=== PATIENT | female | born 1945 | race Caucasian/White ===

== ENCOUNTER → 2019-05-20 | Outpatient (CLI) | payer MEDICARE ==
--- NOTE | 2019-05-20 12:13 | Diagnostic Imaging Report ---
INDICATION: Right knee popping. Time of exam 11:59 AM 3 views of the right knee were obtained. Alignment is normal. There are degenerative changes about the right knee. The medial and lateral joint spaces are fairly well maintained but there is marginal osteophyte formation of the femoral condyles and tibial plateaus. Patellofemoral degenerative change is significant. No fractures are seen. There is no joint effusion. IMPRESSION: Degenerative changes. No acute bony abnormality is detected. Dictated by: Dictated on workstation # [id number]
== END ==
LOC: RAD FS 11:42
PROVIDERS: ATTEND Nurse Practitioner
DX: M17.11 Unilateral primary osteoarthritis, right knee (principal)
CPT/HCPCS: 73562

== ENCOUNTER 2021-08-16 12:52 | Outpatient (CLI) | payer MEDICARE ==
[~2021-08-16] VITALS: Ht 160 cm; Wt 90.3 kg
[2021-08-16] MEDS ORDERED: POTA99TA26 PO (13:47)
[2021-08-16] MEDS ORDERED: MV-M1TAB57 PO (13:47)
[2021-08-16] MEDS ORDERED: GLUC1CAP37 PO (13:47)
[2021-08-16] MEDS ORDERED: ATEN25TA PO (13:47)
[2021-08-16] MEDS ORDERED: MAGN400C PO (13:47)
[2021-08-16] MEDS ORDERED: MV-M1TAB20 PO (13:47)
[2021-08-16] MEDS ORDERED: C,E,1CAP PO (13:47)
[2021-08-16] MEDS ORDERED: NAPR-1070 PO (13:47)
[2021-08-16] MEDS ORDERED: ALBU2TAB38 PO (13:47)
[2021-08-16] MEDS ORDERED: CYAN250010 PO (13:47)
[2021-08-16] MEDS ORDERED: CALC-823 PO (13:47)
[2021-08-16] MEDS ORDERED: VITA400C64 PO (13:47)
[2021-08-16] MEDS ORDERED: ASPI-999 PO (13:47)
[2021-08-16] MEDS ORDERED: ATOR10TA66 PO (13:47)
== END 2021-08-16 16:36 | disposition home or self-care (01) ==
LOC: PREOP 12:52
PROVIDERS: ATTEND Surgery
DX: Z01.818 Encounter for other preprocedural examination (principal)

== ENCOUNTER → 2021-08-20 | Day surgery (SDC) | payer MEDICARE ==
[~2021-08-20] VITALS: Ht 160 cm; Wt 90.3 kg
[~2021-08-20] MED LIST: ALBU2TAB38 PO; ASPI-999 PO; ATEN25TA PO; ATOR10TA66 PO; C,E,1CAP PO; CALC-823 PO; CYAN250010 PO; GLUC1CAP37 PO; LACTATED RINGERS 1,000 ML IV ONE; LACTATED RINGERS 1,000 ML IV STA; MAGN400C PO; MV-M1TAB20 PO; MV-M1TAB57 PO; NAPR-1070 PO; POTA99TA26 PO; PROPOFOL INJECTION 50 ML IV ONE; VITA400C64 PO
--- NOTE | 2021-08-20 10:38 | Progress Note-Pre Operative ---
Pre-Operative Progress Note H&P Reviewed The H&P was reviewed, patient examined and no changes noted. Time Seen by Provider: 10:37 Date H&P Reviewed: Aug 20, 2021 Time H&P Reviewed: 10:37 Pre-Operative Diagnosis: screening colonoscopy HELEN BECKHAM DO Aug 20, 2021 10:38
[2021-08-20 10:40] VITALS: BP 151/69
--- NOTE | 2021-08-20 11:54 | Progress Note-Post Operative ---
Post-Operative Progess Note Surgeon (s)/Forest Ranger Technician (s) Surgeon HELEN BECKHAM DO Forest Ranger Technician: DESHAUN Augustine Pre-Operative Diagnosis screening colonoscopy Post-Operative Diagnosis Diverticula int hemorrhoids Procedure & Operative Findings Date of Procedure 08/20/21 Procedure Performed/Findings Colonoscopy PROCEDURE NOTE: After informed consent was obtained, the patient was brought to the endoscopy suite, placed in bed in left lateral decubitus position. She was administered IV sedation by the CHESTNUT TANNER who then monitored her vitals the entire time, heart rate, blood pressure and pulse ox and the scope was inserted. Pushed all the way to about 150 cm, into the cecum and took a picture of appendiceal orifice. Noted the ileocecal valve and then slowly withdrew the scope insufflating to look circum- ferentially at the barrios starting in the cecum, up the ascending colon to the hepatic flexure and then down the transverse colon. Toward the splenic flexure, into the descending colon and down into the sigmoid; saw some diverticula through here and took a picture. Finally into the rectal vault and retroflexed the scope. Took a picture of the internal hemorrhoids. The patient tolerated the procedure. She was recovered in endoscopy suite. She won't need another colonoscopy for 10 years, unless she has symptom changes. Anesthesia Type IV sedation by CHESTNUT TANNER Estimated Blood Loss Estimated blood loss (mL): none Specimens/Packing Specimens Removed none HELEN BECKHAM DO Aug 20, 2021 11:54
--- NOTE | 2021-08-20 11:54 | Endoscopy Discharge Instruct ---
Endo Procedure/Findings Findings 1.: Diverticulosis 2.: Internal Hemorrhoids Discharge Instructions - Activity: You might feel a little sleepy until tomorrow. This is due to the medicine you received to relax you. Until tomorrow, you should: NOT drive a car, operate machinery or power tools. NOT drink any alcoholic beverages. NOT make any important decisions or sign importortant papers. Do not return to work until tomorrow, unless otherwise instructed. Resume previous activities tomorrow. Diet: Start by taking liquids. If you tolerate liquids, advance to solid food. 1.: Colonscopy in 10 years Notify Physician - If you experience excessive bleeding, unusual abdominal pain, fever, or chest pain, contact your doctor immediately. HELEN BECKHAM DO Aug 20, 2021 11:54
[2021-08-20 11:55] VITALS: BP 96/52
[2021-08-20 12:35] VITALS: BP 131/61
--- NOTE | 2021-08-20 13:47 | Anesthesia-General Post-Op ---
MAC Patient Condition Mental Status/LOC: Same as Preop Cardiovascular: Satisfactory Nausea/Vomiting: Absent Respiratory: Satisfactory Pain: Controlled Complications: Absent Post Op Complications Complications None Follow Up Care/Instructions Patient Instructions None needed. Anesthesiology Discharge Order Discharge Order Patient is doing well, no complaints, stable vital signs, no apparent adverse anesthesia problems. No complications reported per nursing. RADHA BARTHOLOMEW CRNA Aug 20, 2021 13:47
== END | disposition home or self-care (01) ==
LOC: ENDO 10:12
PROVIDERS: ATTEND Surgery
DX: K57.31 Diverticulosis of large intestine without perforation or abscess with bleeding (principal); K64.8 Other hemorrhoids; I10 Essential (primary) hypertension; E78.00 Pure hypercholesterolemia, unspecified; K59.00 Constipation, unspecified; J45.909 Unspecified asthma, uncomplicated; G47.33 Obstructive sleep apnea (adult) (pediatric); Z79.899 Other long term (current) drug therapy; Z99.89 Dependence on other enabling machines and devices